=== PATIENT | female | born 1990 | race Caucasian/White ===

== ENCOUNTER 2017-07-09 17:23 | Emergency (ER) | payer MEDICAID, SELFPAY | END 2017-07-09 18:01 | disposition home or self-care (01) | PROVIDERS: Emergency Provider Nurse Practitioner; Visit Provider Nurse Practitioner | DX: J11.1 Influenza due to unidentified influenza virus with other respiratory manifestations (principal); J45.909 Unspecified asthma, uncomplicated; F17.210 Nicotine dependence, cigarettes, uncomplicated; Z79.899 Other long term (current) drug therapy | CPT/HCPCS: 87804; 87880; 99201 ==

== ENCOUNTER 2017-09-30 21:10 | Emergency (ER) | payer MEDICAID, SELFPAY ==
[2017-09-30 21:17] VITALS: BMI 38.9
[2017-09-30 21:22] VITALS: BP 141/85; PULSE 87; RESP 18; TEMP 36.6; O2SAT 99; BMI 85.8
--- NOTE | 2017-09-30 21:32 | HMH.EDALLER ---
ED Disposition Clinical Impression: Adverse reaction to drug Qualifiers: Encounter type: initial encounter Qualified Code(s): T88.7XXA - Unspecified adverse effect of drug or medicament, initial encounter Disposition: Home, Self-Care Condition on Discharge: Good Instructions: DI for General Allergic Reactions Additional Instructions: fluids and stop meds and use antihistamine - Critical Care Critical Care Time: No Attestation: On 09/30/17, the high probability of a clinically significant, sudden or life threatening deterioration of the following system(s) required my full and direct attention, intervention and personal management. The time I documented below is in addition to time spent performing reported procedures but includes the following listed in this critical care notation. Medical Decision Making - Medical Records Medical records reviewed: Yes: I reviewed the patient's medical records. Vital Signs: 09/30/17 21:22 Temperature 97.8 F Temperature Source Oral Pulse Rate [Right Radial] 87 Respiratory Rate 18 Blood Pressure [Right Arm] 141/85 Blood Pressure Mean [Right Arm] 103 Blood Pressure Source [Right Arm] Automatic Cuff Blood Pressure Position [Right Arm] Sitting 02 Sat by Pulse Oximetry 99 Oxygen Delivery Method Room Air - Brennan Inquiry Pt receiving controlled substance: No Allergic React/Insect Bite HPI - General Chief complaint: Allergic Reaction Stated complaint: poss allergic reaction to medication Time Seen by Provider: 09/30/17 21:32 Mode of Arrival - ED Triage: Ambulatory Source of Information: Patient, Medical Record Limitations: No Limitations - History of Present Illness HPI narrative: pt with recent dental procedure and on cynthia with feeling different and area of ant rash all occurred tonight complaint: allergic reaction Onset (ago): hour(s) Exposure: medication Symptoms: rash Treatment prior to arrival: none Allergies/Adverse Reactions: Allergies Allergy/AdvReac Type Severity Reaction Status Date / Time No Known Allergies Allergy Unverified 07/11/17 14:06 Previous Allergic Reaction History: none Severity: mild - Related Data Home Medications Medication Instructions Recorded Confirmed Amoxicillin [Amoxicillin 500mg 500 mg PO TID 09/30/17 09/30/17 Cap] PARoxetine HCl [Paxil 20mg Tablet] 20 mg PO DAILY 09/30/17 09/30/17 [facility] History I have reviewed the patient's past medical history: Yes - Social History Smoking Status: Current every day smoker Tobacco Type: cigarettes Alcohol Intake: current Alcohol Intake Frequency:: a few times a month - Psychiatric History Expresses thoughts of harming self/others: None Suicide Plan Description: No Plan ROS Obtained: Yes All systems reviewed & no additional complaints - Constitutional Constitutional: Denies fever(s) - Eyes Eyes: Denies change in vision - ENT Ears, Nose, Mouth, and Throat: Reports dental pain, Denies lip swelling, Denies sore throat, Denies throat swelling - Respiratory Respiratory: No cough, No dyspnea, No wheezing - Gastrointestinal Gastrointestingal: Denies: abdominal pain - Musculoskeletal Musculoskeletal: Denies joint pain - Integumentary/Breasts Skin/Breast: Reports rash - Neurologic Neurologic: Denies seizure-like activity Physical Exam - General General appearance: alert, in no apparent distress - Head Head exam: atraumatic - Eye Eye exam: Present: PERRL, EOMI - ENT ENT exam: Present: normal oropharynx, mucous membranes moist - Neck Neck exam: Absent: trachea midline - Respiratory Respiratory exam: Absent: respiratory distress - Cardiovascular Cardiovascular exam: Present: regular rate - Extremities Exam Extremities exam: Absent: tenderness - Neurological Exam Neurological exam: Present: alert, oriented X3, CN II-XII intact - Skin Skin exam: Present: rash (no hives one area on ant chest )
--- NOTE | 2017-09-30 21:35 | ED_ITS ---
ED Disposition Clinical Impression: Adverse reaction to drug Qualifiers: Encounter type: initial encounter Qualified Code(s): T88.7XXA - Unspecified adverse effect of drug or medicament, initial encounter Disposition: Home, Self-Care Condition on Discharge: Good Instructions: DI for General Allergic Reactions Additional Instructions: fluids and stop meds and use antihistamine - Critical Care Critical Care Time: No Attestation: On 09/30/17, the high probability of a clinically significant, sudden or life threatening deterioration of the following system(s) required my full and direct attention, intervention and personal management. The time I documented below is in addition to time spent performing reported procedures but includes the following listed in this critical care notation. Medical Decision Making - Medical Records Medical records reviewed: Yes: I reviewed the patient's medical records. Vital Signs: 09/30/17 21:22 Temperature 97.8 F Temperature Source Oral Pulse Rate [Right Radial] 87 Respiratory Rate 18 Blood Pressure [Right Arm] 141/85 Blood Pressure Mean [Right Arm] 103 Blood Pressure Source [Right Arm] Automatic Cuff Blood Pressure Position [Right Arm] Sitting 02 Sat by Pulse Oximetry 99 Oxygen Delivery Method Room Air - Brennan Inquiry Pt receiving controlled substance: No Allergic React/Insect Bite HPI - General Chief complaint: Allergic Reaction Stated complaint: poss allergic reaction to medication Time Seen by Provider: 09/30/17 21:32 Mode of Arrival - ED Triage: Ambulatory Source of Information: Patient, Medical Record Limitations: No Limitations - History of Present Illness HPI narrative: pt with recent dental procedure and on cynthia with feeling different and area of ant rash all occurred tonight complaint: allergic reaction Onset (ago): hour(s) Exposure: medication Symptoms: rash Treatment prior to arrival: none Allergies/Adverse Reactions: Allergies Allergy/AdvReac Type Severity Reaction Status Date / Time No Known Allergies Allergy Unverified 07/11/17 14:06 Previous Allergic Reaction History: none Severity: mild - Related Data Home Medications Medication Instructions Recorded Confirmed Amoxicillin [Amoxicillin 500mg 500 mg PO TID 09/30/17 09/30/17 Cap] PARoxetine HCl [Paxil 20mg Tablet] 20 mg PO DAILY 09/30/17 09/30/17 [facility] History I have reviewed the patient's past medical history: Yes - Social History Smoking Status: Current every day smoker Tobacco Type: cigarettes Alcohol Intake: current Alcohol Intake Frequency:: a few times a month - Psychiatric History Expresses thoughts of harming self/others: None Suicide Plan Description: No Plan ROS Obtained: Yes All systems reviewed & no additional complaints - Constitutional Constitutional: Denies fever(s) - Eyes Eyes: Denies change in vision - ENT Ears, Nose, Mouth, and Throat: Reports dental pain, Denies lip swelling, Denies sore throat, Denies throat swelling - Respiratory Respiratory: No cough, No dyspnea, No wheezing - Gastrointestinal Gastrointestingal: Denies: abdominal pain - Musculoskeletal Musculoskeletal: Denies joint pain - Integumentary/Breasts Skin/Breast: Reports rash - Neurologic Neurologic: Denies se
[2017-09-30 21:53] VITALS: BP 112/72; PULSE 77; RESP 16; TEMP 36.6; O2SAT 97
== END 2017-09-30 21:50 | disposition home or self-care (01) ==
PROVIDERS: Emergency Provider Emergency Medicine
DX: T88.7XXA Unspecified adverse effect of drug or medicament, initial encounter (principal); F17.210 Nicotine dependence, cigarettes, uncomplicated
CPT/HCPCS: 99281